=== PATIENT | female | born 1970 ===

== ENCOUNTER 2016-09-01 07:05 | Day surgery (SDC) | payer SELFPAY ==
[2016-09-01] MEDS ORDERED: Lactated Ringer's 500 ML IV ONE (07:35)
[2016-09-01 07:51] VITALS: O2SAT 100
[2016-09-01] MEDS ORDERED: Propofol 10 mg/ml Inj (20 ML) ONE (08:34)
[2016-09-01 09:15] VITALS: TEMP 97.6
[2016-09-01 09:30] VITALS: BP 110/72; PULSE 78; RESP 14
== END 2016-09-01 09:39 | disposition home or self-care (01) ==
LOC: H.ENDO 07:05
PROVIDERS: ATTEND Internal Medicine Gastroenterology
DX: T18.3XXA Foreign body in small intestine, initial encounter (principal)